=== PATIENT | female | born 1995 | race Caucasian/White ===

== ENCOUNTER → 2016-07-17 | Outpatient (CLI) | payer OTHER ==
[~2016-07-17] MED LIST: DESO1TAB47 PO; HYDR-3730 PO
[2016-07-17 09:45] LABS: CHOLESTEROL 197 MG/DL (< 200); DIRECT LDL 143 MG/DL (1-129); GLUCOSE FASTING 85 MG/DL (70-105); TRIGLYCERIDES 84 MG/DL (<150); VLDL CHOLESTEROL 17 MG/DL (5-40)
== END ==
LOC: LAB 08:58
PROVIDERS: ATTEND Obstetrics & Gynecology
DX: Z00.00 Encounter for general adult medical examination without abnormal findings (principal)
CPT/HCPCS: 36415; 80061; 82947